=== PATIENT | male | born 1990 | race Caucasian/White ===

== ENCOUNTER 2018-02-02 11:41 | Emergency (ER) | payer OTHER ==
[2018-02-02] MEDS: TETANUS IMMUNE GLOB 250 UNIT SYG IM (13:24)
[2018-02-02] MEDS: DIPHTH/TET/ACEL PERTUSS (ADULT) 0.5 ML VIAL IM* (13:25)
== END 2018-02-02 14:10 | disposition home or self-care (01) ==
LOC: FTE 11:41
DX: S61.411A Laceration without foreign body of right hand, initial encounter (principal); W26.8XXA Contact with other sharp object(s), not elsewhere classified, initial encounter; Y92.9 Unspecified place or not applicable
CPT/HCPCS: 90389; 90471; 90715; 99283-25

== ENCOUNTER 2018-10-10 10:18 | Emergency (ER) | payer OTHER ==
[2018-10-10] MEDS: ALBUTEROL 0.083% (NEB) 2.5 MG/3 ML AMP HHN (11:10)
== END 2018-10-10 12:44 | disposition home or self-care (01) ==
LOC: FTE 12:44
DX: J40 Bronchitis, not specified as acute or chronic (principal)
CPT/HCPCS: 94664; 99283-25